=== PATIENT | female | born 1950 | race Caucasian/White ===

== ENCOUNTER 2020-10-23 08:31 | Emergency (ER) | payer BC ==
[~2020-10-23] VITALS: Ht 160 cm; Wt 75.0 kg
[2020-10-23] MEDS ORDERED: MORPHINE SULFATE 4 MG/ML CPJ (NOT FOR IM USE) IV STA (09:34)
[2020-10-23] MEDS ORDERED: ONDANSETRON HCL 4MG/2ML INJ IV STA (09:34)
[2020-10-23 10:23] LABS: BASOPHILS % 0.4 % (0.0-2.0); EOSINOPHILS % 0.2 % (0.0-5.0); HEMATOCRIT. 36.9 % (36.0-48.0); HEMOGLOBIN. 12.8 g/dL (12.0-16.0); LYMPHOCYTES % 13.4 % (20.0-50.0); MEAN CORPUSCULAR HEMOGLOBIN 29.5 pg (28.0-32.0); MEAN CORPUSCULAR VOLUME 85.2 fL (81.0-99.0); MEAN PLATELET VOLUME 7.7 fl (7.4-10.4); MONOCYTES % 6.1 % (2.0-8.0); NEUTROPHILS % 79.9 % (40.0-76.0); PLATELET 350 x1000/uL (130-400); RED BLOOD CELL COUNT 4.32 mill/uL (4.2-5.4); RED CELL DISTRIBUTION WIDTH 15.1 % (11.6-14.6)
[2020-10-23 10:26] LABS: CLARITY URINE CLOUDY (CLEAR); COLOR URINE YELLOW (YELLOW); KETONES URINE NEGATIVE (NEGATIVE); LEUKOCYTE ESTERASE URINE NEGATIVE (NEGATIVE); NITRITE URINE NEGATIVE (NEGATIVE); OCCULT BLOOD URINE 2+ (NEGATIVE); PROTEIN URINE NEGATIVE (NEGATIVE); SPECIFIC GRAVITY URINE 1.014 (1.005-1.030); UROBILINOGEN URINE 0.2 E.U./dL (0.2-1.0)
[2020-10-23 10:29] LABS: CHLORIDE 107 mEq/L (98-107)
[2020-10-23 10:33] LABS: INR 1.1; PROTHROMBIN TIME 11.4 sec (9.6-11.0)
[2020-10-23] MEDS ORDERED: SODIUM CHLORIDE 0.9% 500 ML IV NR (10:45)
[2020-10-23] MEDS ORDERED: CEPH500T MT (11:57)
[2020-10-23] MEDS ORDERED: DOXY100T2 MT (11:57)
[2020-10-23] MEDS ORDERED: ONDA4TAB5 MT (11:57)
[2020-10-23] MEDS ORDERED: IBUP-2029 MT (11:57)
[2020-10-23] MEDS ORDERED: DOXYCYCLINE HYCLATE 100MG CAPSULE PO NR (12:00)
[2020-10-23] MEDS ORDERED: CEPHALEXIN 250MG CAPSULE PO NR (12:00)
[2020-10-23 13:00] VITALS: BP 125/64
== END 2020-10-23 12:45 | disposition home or self-care (01) ==
LOC: ER 08:31
DX: L03.311 Cellulitis of abdominal wall (principal); I10 Essential (primary) hypertension; E11.9 Type 2 diabetes mellitus without complications
CPT/HCPCS: 36415; 74176; 80053; 81003; 83605; 83690; 85025; 85610; 99284; J7040; J2270; J2405